=== PATIENT | male | born 1975 | race Caucasian/White ===

== ENCOUNTER 2020-04-23 11:26 | Emergency (ER) | payer OTHER ==
[~2020-04-23] VITALS: Ht 185.4 cm; Wt 81.7 kg
== END 2020-04-23 12:14 | disposition home or self-care (01) ==
LOC: ED 11:26
PROC: 0HQ0XZZ Repair Scalp Skin, External Approach (ICD-10-PCS; principal; 2020-04-23)
DX: S01.01XA Laceration without foreign body of scalp, initial encounter (principal); F17.200 Nicotine dependence, unspecified, uncomplicated; Z23 Encounter for immunization; Z88.0 Allergy status to penicillin; Z88.2 Allergy status to sulfonamides; W14.XXXA Fall from tree, initial encounter
CPT/HCPCS: 12002; 90471; 90715; 99282-25